=== PATIENT | female | born 1940 | race Caucasian/White ===

== ENCOUNTER 2016-10-31 13:08 | Emergency (ER) | payer MEDICARE ==
[2016-10-31 14:47] VITALS: BP 142/74
--- NOTE | 2016-10-31 15:11 | UC ---
Complaint Female HPI - HPI Summary HPI Summary: Dysuria, frequency, urgency starting 2-3 days ago, feels just like UTIs she's had in the past. Has been trying to flush it out with fluids, but it is not going away. - History Of Current Complaint Chief Complaint: UCGU Stated Complaint: UTI COMPLAINT Time Seen by Provider: 10/31/16 14:56 Hx Obtained From: Patient ?: No Onset/Duration: Gradual Onset, Lasting Days Timing: Constant Severity Initially: Mild Severity Currently: Moderate Character: Burning Aggravating Factor(s): Urination Associated Signs And Symptoms: Negative: Back Pain, Vaginal Bleeding/Discharge, Vaginal Discharge, Vomiting(# Of Episodes =) - Allergies/Home Medications Allergies/Adverse Reactions: Allergies Allergy/AdvReac Type Severity Reaction Status Date / Time Phenytoin [From Dilantin] Allergy Unknown Verified 05/04/16 08:48 Reaction Details Sulfa Antibiotics Allergy Unknown Verified 05/04/16 08:48 Reaction Details PMH/Surg Hx/FS Hx/Imm Hx Endocrine History Of: Denies: Diabetes, Thyroid Disease Cardiovascular History Of: Denies: Cardiac Disorders, Hypertension Respiratory History Of: Denies: COPD, Asthma GI/ History Of: Denies: Ulcer Cancer History Of: Denies: Breast Cancer - Surgical History Surgical History: Yes Surgery Procedure, Year, and Place: CEREBRAL ANUERSYM 2000, LEFT ANKLE SURGERY - Family History Known Family History: Positive: Hypertension - Social History Occupation: Retired Alcohol Use: Daily Alcohol Amount: 1-2 GLASSES A WINE A DAY Substance Use Type: None Smoking Status (MU): Never Smoked Tobacco Review of Systems Constitutional: Negative Skin: Negative Eyes: Negative ENT: Negative Respiratory: Negative Cardiovascular: Negative Gastrointestinal: Negative Genitourinary: Dysuria, Frequency, Urgency Motor: Negative Neurovascular: Negative Musculoskeletal: Negative Neurological: Negative Psychological: Negative All Other Systems Reviewed And Are Negative: Yes Physical Exam Triage Information Reviewed: Yes Appearance: Well-Appearing, No Pain Distress, Well-Nourished Vital Signs: Initial Vital Signs Temp 98.4 F 10/31/16 14:41 Pulse 66 10/31/16 14:41 Resp 16 10/31/16 14:41 BP 142/74 10/31/16 14:41 Pulse Ox 99 10/31/16 14:41 Vital Signs Reviewed: Yes Eye Exam: Normal Eyes: Positive: Conjunctiva Clear ENT Exam: Normal ENT: Positive: Normal ENT inspection, Hearing grossly normal, Pharynx normal Dental Exam: Normal Neck exam: Normal Neck: Positive: Supple, Nontender, No Lymphadenopathy Respiratory Exam: Normal Respiratory: Positive: Chest non-tender, Lungs clear, Normal breath sounds, No respiratory distress, No accessory muscle use Cardiovascular Exam: Normal Cardiovascular: Positive: RRR, No Murmur Abdomen Description: Negative: CVA Tenderness (R), CVA Tenderness (L) Musculoskeletal Exam: Normal Neurological Exam: Normal Neurological: Positive: Alert Psychological Exam: Normal Skin Exam: Normal Complaint Female Dx - Differential Dx/Diagnosis Provider Diagnoses: UTI Discharge - Discharge Plan Condition: Stable Disposition: HOME Prescriptions: Nitrofurantoin Monohyd Macro [Macrobid] 100 mg PO BID #10 cap Patient Education Materials: Urinary Tract Infection in Women (ED) Referrals: Henrietta Quintana MD [Primary Care Provider] - 2 Weeks
== END 2016-10-31 15:09 | disposition home or self-care (01) ==
LOC: UCEAST 13:08
DX: N39.0 Urinary tract infection, site not specified (principal); Z87.440 Personal history of urinary (tract) infections; Z88.8 Allergy status to other drugs, medicaments and biological substances
CPT/HCPCS: 81003; 87077; 87086; 87186; 99212; G0463

== ENCOUNTER 2016-12-31 07:01 | Emergency (ER) | payer MEDICARE, OTHER ==
[2016-12-31 07:25] VITALS: BP 131/78
--- NOTE | 2016-12-31 07:44 | UC ---
Skin Complaint HPI - HPI Summary HPI Summary: 76 yo female with itchy rash onset yesterday no f/c no new meds relief with topical steroid cr - History of Current Complaint Chief Complaint: UCSkin Time Seen by Provider: 12/31/16 07:13 Stated Complaint: RASH Hx Obtained From: Patient Onset/Duration: Gradual Onset, Lasting Hours Timing: Constant Onset Severity: Moderate Current Severity: Mild Pain Intensity: 0 Pain Scale Used: 0-10 Numeric Location: Other - trunk .extr Character: Pruritus, Redness Aggravating: Nothing Alleviating: OTC Creams/Salves Associated Signs & Symptoms: Positive: Rash - Allergy/Home Medications Allergies/Adverse Reactions: Allergies Allergy/AdvReac Type Severity Reaction Status Date / Time Phenytoin [From Dilantin] Allergy Unknown Verified 12/31/16 07:09 Reaction Details Sulfa Antibiotics Allergy Unknown Verified 12/31/16 07:09 Reaction Details Home Medications: Home Medications Acetaminophen [Acetaminophen Extra Stren] 1 tab PO TID PRN 12/31/16 [History Confirmed 12/31/16] Diphenhydramine HCl [Benadryl Allergy 25 MG CAP] 2 tab PO TID PRN 12/31/16 [ History Confirmed 12/31/16] Triamcinolone 0.1% OINT(NF) [Kenolog 0.1% OINT(NF)] 1 applic TOPICAL ONCE PRN [History Confirmed 12/31/16] Review of Systems Constitutional: Negative Skin: Rash Eyes: Negative ENT: Negative Respiratory: Negative Cardiovascular: Negative Gastrointestinal: Negative Genitourinary: Negative Motor: Negative Neurovascular: Negative Musculoskeletal: Negative Neurological: Negative Psychological: Negative All Other Systems Reviewed And Are Negative: Yes PMH/Surg Hx/FS Hx/Imm Hx Previously Healthy: Yes - Surgical History Surgical History: Yes Surgery Procedure, Year, and Place: CEREBRAL ANUERSYM 2000, LEFT ANKLE SURGERY - Family History Known Family History: Positive: Hypertension - Social History Alcohol Use: Daily Alcohol Amount: 1-2 GLASSES A WINE A DAY Substance Use Type: None Smoking Status (MU): Never Smoked Tobacco Physical Exam Triage Information Reviewed: Yes Appearance: Well-Appearing, No Pain Distress, Well-Nourished Vital Signs: Initial Vital Signs Temp 98.7 F 12/31/16 07:05 Pulse 71 12/31/16 07:05 Resp 16 12/31/16 07:05 BP 131/78 12/31/16 07:05 Pulse Ox 99 12/31/16 07:05 Vital Signs Reviewed: Yes Eyes: Positive: Conjunctiva Clear ENT: Positive: Hearing grossly normal. Negative: Nasal congestion, Nasal drainage, Trismus, Muffled/hoarse voice Neck: Positive: Supple, Nontender Respiratory: Positive: Lungs clear, Normal breath sounds, No respiratory distress Cardiovascular: Positive: RRR, No Murmur Abdomen Description: Positive: Nontender, No Organomegaly, Soft Musculoskeletal: Positive: ROM Intact, No Edema Neurological: Positive: Alert Skin: Positive: rashes - fine red rash on trunk/inner thighs Course/Dx - Diagnoses Provider Diagnoses: rash of uncertain cause. steroid responsive Discharge - Discharge Plan Condition: Stable Disposition: HOME Prescriptions: Triamcinolone 0.1% CREAM(NF) [Kenalog Cream 0.1%(NF)] 1 applic TOPICAL QID PRN # 60 tube PRN Reason: Itching Patient Education Materials: Acute Rash (ED) Referrals: Henrietta Quintana MD [Primary Care Provider] - 7 Days (if not bettter) Additional Instructions: return here for new or worsening symptoms
== END 2016-12-31 07:45 | disposition home or self-care (01) ==
LOC: UCEAST 07:01
DX: R21 Rash and other nonspecific skin eruption (principal)
CPT/HCPCS: 99212; G0463